=== PATIENT | female | born 1980 | race American Indian/Alaskan Native ===

== ENCOUNTER 2017-02-27 17:26 | Emergency (ER) | payer OTHER ==
[2017-02-27 17:44] VITALS: BP 141/99
[2017-02-27 18:07] LABS: Basophils % (Auto) 0.5 % (0.0-1.8); Hematocrit 40.1 % (30.3-42.9); Hemoglobin 13.7 gm/dl (10.1-14.3); Mean Corpuscular HGB Conc 34 % (30-34); Mean Corpuscular Hemoglobin 31 pg (28-32); Mean Corpuscular Volume 90 fl (79-97); Platelet Count 291 K/mm3 (140-440); Red Blood Count 4.44 M/mm3 (3.65-5.03); Red Cell Distribution Width 13.6 % (13.2-15.2); White Blood Count 9.2 K/mm3 (4.5-11.0)
[2017-02-27 18:20] LABS: Alanine Aminotransferase 23 units/L (7-56); Albumin 4.1 g/dL (3.9-5); Albumin/Globulin Ratio 1.5 %; Alkaline Phosphatase 51 units/L (35-129); Anion Gap 17 mmol/L; Blood Urea Nitrogen 9 mg/dL (7-17); Carbon Dioxide 26 mmol/L (22-30); Chloride 103.7 mmol/L (98-107); Glucose 98 mg/dL (65-100); Lipase 47 units/L (13-60); Potassium 3.7 mmol/L (3.6-5.0); Sodium 143 mmol/L (137-145); Total Protein 6.8 g/dL (6.3-8.2)
[2017-02-27 22:10] LABS: INR 0.98 (0.87-1.13)
[2017-02-27 22:11] LABS: Partial Thromboplastin Time 29.7 Sec. (24.2-36.6)
[2017-02-27 22:52] LABS: Bacteria,Urine 1+ /HPF (Negative); Bilirubin,Urine NEG (Negative); Blood,Urine NEG (Negative); Ketones,Urine NEG (Negative); Leukocyte Esterase,Urine NEG (Negative); Mucus,Urine FEW /HPF; Nitrite,Urine NEG (Negative); Protein,Urine <15 mg/dL mg/dL (Negative); Urobilinogen,Urine < 2.0 mg/dL (<2.0)
--- NOTE | 2017-03-04 20:49 | ED Elopement Review ---
ED Pt Elopement review - Results review Lab results: Laboratory Tests 02/27/17 02/27/17 02/27/17 17:48 17:48 21:18 WBC 9.2 RBC 4.44 Hgb 13.7 Hct 40.1 MCV 90 MCH 31 MCHC 34 RDW 13.6 Plt Count 291 Lymph % (Auto) 31.8 Geary % (Auto) 5.3 Eos % (Auto) 2.0 Baso % (Auto) 0.5 Lymph # 2.9 Geary # 0.5 Eos # 0.2 Baso # 0.0 Seg Neutrophils % 60.4 Seg Neutrophils # 5.5 PT INR APTT Sodium 143 Potassium 3.7 Chloride 103.7 Carbon Dioxide 26 Anion Gap 17 BUN 9 Creatinine 0.6 L Estimated GFR > 60 BUN/Creatinine Ratio 15.00 Glucose 98 Calcium 9.0 Total Bilirubin 0.50 AST 20 ALT 23 Alkaline Phosphatase 51 Troponin T NT-Pro-B Natriuret Pep Total Protein 6.8 Albumin 4.1 Albumin/Globulin Ratio 1.5 Lipase 47 Urine Color Yellow Urine Turbidity Slightly-cloudy Urine pH 5.0 Ur Specific [place] 1.019 Urine Protein <15 mg/dl Urine Glucose (UA) Neg Urine Ketones Neg Urine Blood Neg Urine Nitrite Neg Urine Bilirubin Neg Urine Urobilinogen < 2.0 Ur Leukocyte Esterase Neg Urine WBC (Auto) 4.0 Urine RBC (Auto) 4.0 U Epithel Cells (Auto) 23.0 H Urine Bacteria (Auto) 1+ Urine Mucus Few 02/27/17 02/27/17 02/27/17 21:19 21:19 21:19 WBC RBC Hgb Hct MCV MCH MCHC RDW Plt Count Lymph % (Auto) Geary % (Auto) Eos % (Auto) Baso % (Auto) Lymph # Geary # Eos # Baso # Seg Neutrophils % Seg Neutrophils # PT 13.5 INR 0.98 APTT 29.7 Sodium Potassium Chloride Carbon Dioxide Anion Gap BUN Creatinine Estimated GFR BUN/Creatinine Ratio Glucose Calcium Total Bilirubin AST ALT Alkaline Phosphatase Troponin T < 0.010 NT-Pro-B Natriuret Pep 126.7 Total Protein Albumin Albumin/Globulin Ratio Lipase Urine Color Urine Turbidity Urine pH Ur Specific [place] Urine Protein Urine Glucose (UA) Urine Ketones Urine Blood Urine Nitrite Urine Bilirubin Urine Urobilinogen Ur Leukocyte Esterase Urine WBC (Auto) Urine RBC (Auto) U Epithel Cells (Auto) Urine Bacteria (Auto) Urine Mucus - Call Back decision Pt Call Back Decision: Pt to F/U with PMD
== END 2017-02-27 21:35 | disposition left against medical advice (07) ==
LOC: ED 17:26
DX: M25.511 Pain in right shoulder (principal); Z53.21 Procedure and treatment not carried out due to patient leaving prior to being seen by health care provider
CPT/HCPCS: 36415; 80053; 81001; 83690; 83880; 84484; 85025; 85610; 85730; 93005; 93010